=== PATIENT | male | born 1970 | race Caucasian/White ===

== ENCOUNTER 2025-02-09 08:38 | Outpatient (CLI) | payer OTHER, SELFPAY ==
--- NOTE | ~2025-02-09 | CT_ITS ---
CT Scan of the Chest without Contrast: Clinical Indication: Lung cancer screening, nicotine dependence Technique: Contiguous sections were acquired throughout the chest without intravenous contrast. Dose reduction technique was used on this scan by utilizing automated exposure control and iterative recon struction technique. The dose-length product (DLP) was 234.05 mGy-cm. Findings: There is no evidence of any significant mediastinal, hilar or axillary lymphadenopathy. The mediastin al soft tissues appear normal. There is no evidence of pleural or pericardial effusion. 3 mm right upper lobe nodule noted (axial image 62). 4 mm nodule right middle lobe noted (axial image 83). 8 mm right lower lobe nodule noted (axial image 96). Images through the upper abdomen reveal no abnormalities. Impression: Lung RADS 3: Probably benign. Six-month follow-up CT scan recommended. Reviewed, dictated and finalized at [facility]. Impression: Lung RADS 3: Probably benign. Six-month follow-up CT scan recommended.
--- OUTSIDE RECORDS SUMMARY | 2025-02-09 08:46 | XMS_ITS | Referral Summary ---
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
--- OUTSIDE RECORDS SUMMARY | 2025-02-09 08:46 | XMS_ITS | Clinical Summary ---
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 Gender Identity Not on file Sexual Orientation Not on file Plan of Treatment Health Maintenance Due Date Last Done Comments Colon Cancer Screening-Colonoscopy 1970 Depression Screening 1970 Hepatitis C Screening 1970 Prostate Cancer Screening-PSA 1970 Hepatitis B Screening 1988 Regular Well Visit/Exam 18-64 1988 Zoster Vaccine (1 of 2) 2020 DTaP/Tdap/Td Vaccine (2 - Td or Tdap) 06/17/2023 06/17/2013 Covid-19 Vaccine (3 - 2023-2 5 season) 2024 01/31/2021, 01/03/2021 Influenza Vaccine (Season Ended) 2025 09/03/2014 Pneumococcal vaccine <65 Aged Out No longer eligible based on patient's age to complete this topic Insurance [address] [place] [id number] [facility] CHOICE PLUS [facility] HMO/PPO Address: [address] [place] [address] [facility] CHOICE PLUS [facility] HMO/PPO Address: [address] [address] [place] [address] Care Teams Web Marketing Coordinator Relationship Specialty Start Date End Date Daryl Hermosillo MD [address] [facility] [address] [place] [address] PCP - General Family Medicine 05/18/19
== END 2025-02-09 08:39 | disposition home or self-care (01) ==
PROVIDERS: PCP Family Medicine; Visit Provider Family Medicine
DX: Z12.2 Encounter for screening for malignant neoplasm of respiratory organs (principal); Z87.891 Personal history of nicotine dependence
CPT/HCPCS: 71271

== ENCOUNTER 2025-03-03 01:22 | Day surgery (SDC) | payer OTHER, SELFPAY ==
[2025-02-20 14:00] VITALS: BMI 32.8
--- OUTSIDE RECORDS SUMMARY | 2025-03-03 01:25 | XMS_ITS | Clinical Summary ---
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 Gender Identity Not on file Sexual Orientation Not on file Plan of Treatment Health Maintenance Due Date Last Done Comments Colon Cancer Screening-Colonoscopy 1970 Depression Screening 1970 Hepatitis C Screening 1970 Prostate Cancer Screening-PSA 1970 Hepatitis B Screening 1988 Regular Well Visit/Exam 18-64 1988 Zoster Vaccine (1 of 2) 2020 DTaP/Tdap/Td Vaccine (2 - Td or Tdap) 06/17/2023 06/17/2013 Covid-19 Vaccine ( - 2023-2 5 season) 2024 01/31/2021, 01/03/2021 Influenza Vaccine (Season Ended) 2025 09/03/2014 Pneumococcal vaccine <65 Aged Out No longer eligible based on patient's age to complete this topic Insurance [address] [place] [id number] [facility] CHOICE PLUS [facility] CHO[facility] PLUS Care Teams Steam Locomotive Firer/Fireman Relationship Specialty Start Date End Date Daryl Hermosillo MD [address] [facility] [address] [place] [address] PCP - General Family Medicine 05/18/19
--- OUTSIDE RECORDS SUMMARY | 2025-03-03 01:25 | XMS_ITS | Referral Summary ---
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
[2025-03-03 07:16] VITALS: BP 141/89; PULSE 64; RESP 18; TEMP 35.8; O2SAT 98
[2025-03-03] MEDS: LACTATED RINGERS 1,000 ML 150 ML IV CONT (07:26)
--- NOTE | 2025-03-03 07:53 | WPDANESEPPF ---
Anes - Initial Pre Proc Eval Procedure: Operation Date: 03/03/25 08:30 Proposed Procedures p Colonoscopy - Pancho Torrez MD Date/Time: 03/03/25 07:53 Surgeon: Pancho Torrez MD Pre Op Diagnosis: Other fecal abnormalities Patient Data Age: 54 Gender: M Height: 1.8 m Weight: 102.4 kg Last Vital Signs Temp 96.5 F L 03/03/25 07:16 Pulse 64 03/03/25 07:16 Resp 18 03/03/25 07:16 BP 141/89 H 03/03/25 07:16 Pulse Ox 98 03/03/25 07:16 O2 Del Method Room Air 03/03/25 07:16 Allergies Allergy/AdvReac Type Severity Reaction Status Date / Time No Known Allergies Allergy Verified 03/03/25 07:15 Home Medications ?Medication ?Instructions ?Recorded ?Confirmed ?Type No Home Medications 12/07/24 02/20/25 History Patient hx anesthesia problems: none Family hx anesthesia problems: none Results Review: All pre-operative results and documents have been reviewed as part of the pre-operative evaluation. [facility] Past Medical History Medical History Olecranon bursitis of left elbow Tobacco use disorder Family History Family History Father Family history of Alzheimer's disease Unknown Family history of cancer pancreatic Other Diabetes mellitus Hypertension Social History Social History Smoking packs per day: 1 Smoking cigarettes per day: 20.0 Years smoked: 30 Smoking pack-years: 30.00 Smoking status: Former smoker Tobacco type: cigarettes Second hand tobacco smoke exposure: Yes Smoking end date: 07/04/21 Alcohol intake: current Drinks per week: 21 Substance use: current Substance use type: marijuana Other substance usage details: daily Living arrangements: with family Occupation/Education: occupation 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 Gender identity (if verbalized by the patient): Male Sexual Orientation (if Verbalized by the Patient): Straight or Heterosexual Spiritual care concerns: No Anes - Eval Final PreProcedure Day of Procedure 03/03/25 07:53 Patient weight: obese Lungs: normal air movement Airway: Mallampati scale class II Neurological: alert and oriented Last oral intake: >/= 8 hours ASA classification: II Emergent: no Anesthetic plan: proceed Anesthesia type and monitoring: general GIVS and standard monitoring Results Review: All pre-operative results and documents have been reviewed as part of the pre-operative evaluation. DARNELL on CPAP. Informed Consent: The patient's anesthetic plan and its attendant risks and benefits were discussed with the patient/family/POA. Questions were solicited and answers provided to the satisfaction of the patient/family/POA.
--- NOTE | 2025-03-03 08:10 | PM.IMHP ---
H&P: HPI History of Present Illness Date/Time: 03/03/25 08:10 Chief Complaint: screening colonoscopy Narrative: This is the patient's first colonoscopy. There are no GI symptoms and there is no family history of colorectal cancer. Review of Systems Review of Systems: All systems reviewed & are unremarkable except as noted in HPI and below PMFSH Past Medical History Medical History Olecranon bursitis of left elbow Tobacco use disorder Family History Family History Father Family history of Alzheimer's disease Unknown Family history of cancer pancreatic Other Diabetes mellitus Hypertension Social History Social History Smoking packs per day: 1 Smoking cigarettes per day: 20.0 Years smoked: 30 Smoking pack-years: 30.00 Smoking status: Former smoker Tobacco type: cigarettes Second hand tobacco smoke exposure: Yes Smoking end date: 07/04/21 Alcohol intake: current Drinks per week: 21 Substance use: current Substance use type: marijuana Other substance usage details: daily Living arrangements: with family Occupation/Education: occupation 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 Gender identity (if verbalized by the patient): Male Sexual Orientation (if Verbalized by the Patient): Straight or Heterosexual Spiritual care concerns: No Meds Home Medications and Allergies Home Medications ?Medication ?Instructions ?Recorded ?Confirmed ?Type No Home Medications 12/07/24 02/20/25 History Allergies Allergy/AdvReac Type Severity Reaction Status Date / Time No Known Allergies Allergy Verified 03/03/25 07:15 Vital Signs Vital Signs - 24 hr 03/03/25 07:16 Temperature 96.5 F L Pulse Rate 64 Respiratory Rate 18 Blood Pressure 141/89 H Pulse Oximetry 98 Oxygen Delivery Room Air Exam Const: General: cooperative and healthy appearing Resp: Effort & Inspection: normal respiratory effort and able to speak in complete sentences Auscultation: clear to auscultation bilaterally Cardio: Rate: regular rate Rhythm: regular rhythm GI: Inspection: normal to inspection GI Palp: No No hepatosplenomegaly present Auscultation: normal bowel sounds Rectal Exam: deferred Skin: General skin exam: normal color Psych: Appearance: grossly normal Mental Status: mental status grossly normal Assessment and Plan Assessment and plan (1) Encounter for screening colonoscopy: Code(s): Z12.11 - Encounter for screening for malignant neoplasm of colon Status: Acute Assessment and Plan: The patient is deemed a good candidate for the procedure. Consent signed. Will proceed.
[2025-03-03] MEDS: SIMETHICONE ORAL SUSPENSION 20 MG/0.3 ML 30 ML BOTTLE 0.6 ML IRRIGATION (08:28)
[2025-03-03 08:52] VITALS: BP 127/89; PULSE 59; RESP 17; O2SAT 98
[2025-03-03 09:02] VITALS: BP 130/81; PULSE 57; RESP 18; O2SAT 98
[2025-03-03 09:12] VITALS: BP 142/93; PULSE 61; RESP 18; O2SAT 98
== END 2025-03-03 09:17 | disposition home or self-care (01) ==
PROVIDERS: PCP Family Medicine; Referring Provider Physician Assistant; Visit Provider Internal Medicine Gastroenterology
PROC: 0DJD8ZZ Inspection of Lower Intestinal Tract, Via Natural or Artificial Opening Endoscopic (ICD-10-PCS; CPT 45378; principal; 2025-03-03 08:30)
DX: Z12.11 Encounter for screening for malignant neoplasm of colon (principal); D12.4 Benign neoplasm of descending colon; D12.5 Benign neoplasm of sigmoid colon; K63.5 Polyp of colon; D12.8 Benign neoplasm of rectum; F12.90 Cannabis use, unspecified, uncomplicated; E66.9 Obesity, unspecified; Z68.31 Body mass index [BMI] 31.0-31.9, adult; G47.33 Obstructive sleep apnea (adult) (pediatric); Z99.89 Dependence on other enabling machines and devices; Z87.891 Personal history of nicotine dependence; Z80.0 Family history of malignant neoplasm of digestive organs
CPT/HCPCS: 45378; 88305; J2003; J2704; J7120

== ENCOUNTER 2025-09-04 14:39 | Outpatient (CLI) | payer BC, SELFPAY ==
--- NOTE | ~2025-09-04 | CT_ITS ---
CT diagnostic chest wo con HISTORY:f/u on pulmonary nodules noted on CT 01/2025 COMPARISON: 02/09/2025. TECHNIQUE: Axial images of the chest were obtained without infusion of intravenous contrast. Dose optimization technique was utilized. FINDINGS: The examination demonstrates stable pulmonary nodules bilaterally. Right upper lobe pulmonary nodule measures 3 mm on axial image 64, unchanged. Right middle lobe pulmonary nodule measures 4 mm on axial image 87 is unchanged. An 8 mm pulmonary nodule within the right lower lobe measured on axial image 96 is unchanged. There are no pulmonary nodules. Cardiac size and mediastinal configuration are normal in appearance. No hilar or mediastinal lymphadenopathy is seen. Nondistended nondedicated CT there are minimal coronary artery calcifications. The thoracic aorta is normal in caliber. Osseous structures are intact. IMPRESSION: Pulmonary nodules are stable with the largest in the right lower lobe measuring 8 mm. Six-month follow-up CT is recommended. All CT scans at this facility are performed using low dose modulation techniques as appropriate to perform exam including the following: automated exposure control; use of iterative reconstruction technique; adjustment of the mA and/or kV according to patient size (this includes techniques or standardized protocols for targeted exams where dose is matched to indication/reason for exam). Reviewed, dictated and finalized at location S. SLOT TECHNICIAN IMPRESSION: Pulmonary nodules are stable with the largest in the right lower lobe measuring 8 mm. Six-month follow-up CT is recommended. All CT scans at this facility are performed using low dose modulation techniqu es as appropriate to perform exam including the following: automated exposure c ontrol; use of iterative reconstruction technique; adjustment of the mA and/or kV according to patient size (this includes techniques or standardized protocol s for targeted exams where dose is matched to indication/reason for exam).
--- OUTSIDE RECORDS SUMMARY | 2025-09-04 14:58 | XMS_ITS | Clinical Summary ---
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 Gender Identity Not on file Sexual Orientation Not on file Plan of Treatment Health Maintenance Due Date Last Done Comments Colon Cancer Screening-Colonoscopy 1970 Depression Screening 1970 Hepatitis C Screening 1970 Prostate Cancer Screening-PSA 1970 Hepatitis B Screening 1988 Regular Well Visit/Exam 18-64 1988 Zoster Vaccine (1 of 2) 2020 DTaP/Tdap/Td Vaccine (2 - Td or Tdap) 06/17/2023 06/17/2013 Covid-19 Vaccine (3 - 2024-2 6 season) 2025 01/31/2021, 01/03/2021 Influenza Vaccine (#1) 2025 09/03/2014 Pneumococcal vaccine <65 Aged Out No longer eligible based on patient's age to complete this topic Insurance [address] [place] [id number] [facility] CHOICE PLUS [facility] CHOICE PLUS Care Teams Multiple Resaw Operator Relationship Specialty Start Date End Date Daryl Hermosillo MD [address] [facility] [address] [place] [address] PCP - General Family Medicine 05/18/19
== END 2025-09-04 14:40 | disposition home or self-care (01) ==
PROVIDERS: PCP Family Medicine; Visit Provider Physician Assistant
DX: R91.1 Solitary pulmonary nodule (principal); R91.8 Other nonspecific abnormal finding of lung field
CPT/HCPCS: 71250